=== PATIENT | male | born 1960 | race American Indian/Alaskan Native ===

== ENCOUNTER 2021-01-06 22:57 | Emergency (ER) | payer MEDICAID ==
[2021-01-07] MEDS ORDERED: ONDANSETRON 4 MG ODT TAB PO ONE (00:13)
--- NOTE | 2021-01-07 00:22 | Event Note ---
ED Screening Note Date of service: 01/07/21 Time: 00:19 ED Screening Note: c/o sudden onset of right flank pain and vomiting hx of kidney stones-stent placed 1 month ago per pt This initial assessment/diagnostic orders/clinical plan/treatment(s) is/are subject to change based on patients health status, clinical progression and re- assessment by fellow clinical providers in the ED. Further treatment and workup at subsequent clinical providers discretion. Patient/guardian urged not to elope from the ED as their condition may be serious if not clinically assessed and managed. Initial orders include: ct labs zofran
[2021-01-07 00:40] LABS: Basophils % (Auto) 0.2 % (0.0-1.8); Eosinophils # (Auto) 0.2 K/mm3 (0.0-0.4); Eosinophils % (Auto) 1.4 % (0.0-4.3); Hematocrit 48.7 % (35.5-45.6); Hemoglobin 15.6 gm/dl (11.8-15.2); Lymphocytes # (Auto) 1.6 K/mm3 (1.2-5.4); Lymphocytes % (Auto) 11.8 % (13.4-35.0); Mean Corpuscular HGB Conc 32 % (32-34); Mean Corpuscular Volume 91 fl (84-94); Monocytes # (Auto) 0.9 K/mm3 (0.0-0.8); Monocytes % (Auto) 6.3 % (0.0-7.3); Platelet Count 261 K/mm3 (140-440); Red Blood Count 5.33 M/mm3 (3.65-5.03); Red Cell Distribution Width 14.6 % (13.2-15.2)
[2021-01-07 01:03] LABS: Alanine Aminotransferase 34 units/L (7-56); Albumin 4.6 g/dL (3.9-5); BUN/Creatinine Ratio 21; Blood Urea Nitrogen 21 mg/dL (9-20); Calcium 9.6 mg/dL (8.4-10.2); Hemolysis Index 10
--- NOTE | 2021-01-07 02:01 | Cat Scan Report ---
CT ABDOMEN AND PELVIS WITHOUT CONTRAST INDICATION / CLINICAL INFORMATION: acute right flank pain. TECHNIQUE: Axial CT images were obtained through the abdomen and pelvis without IV contrast. All CT scans at this location are performed using CT dose reduction for ALARA by means of automated exposure control. COMPARISON: None available. FINDINGS: LOWER CHEST: No significant abnormality. LIVER: Large, fatty. GALLBLADDER: No significant abnormality. BILE DUCTS: No significant abnormality. PANCREAS: No significant abnormality. SPLEEN: No significant abnormality. ADRENALS: No significant abnormality. RIGHT KIDNEY / URETER: Moderate distention right renal collecting system and ureter to select the pre sence of a double-J stent. LEFT KIDNEY / URETER: No significant abnormality. STOMACH / SMALL BOWEL: No significant abnormality. COLON: Noninflamed colonic diverticulosis. APPENDIX: No significant abnormality. PERITONEUM: No free fluid. No free air. No fluid collection. LYMPH NODES: No significant adenopathy. VASCULAR STRUCTURES: No significant abnormality. URINARY BLADDER: No significant abnormality. REPRODUCTIVE ORGANS: No significant abnormality. ADDITIONAL FINDINGS: None. SKELETAL SYSTEM: No significant abnormality. IMPRESSION: Distention of the right renal collecting system with adjacent renal inflammation despite a double-J stent. Suspect stent occlusion. Signer Name: Noman Cuello MD Signed: 01/07/2021 1:56 AM Workstation Name: [id number]
[2021-01-07 02:39] LABS: Bacteria,Urine 1+ /HPF (Negative); Bilirubin,Urine NEG (Negative); Blood,Urine LG (Negative); Color,Urine Red (Yellow); Mucus,Urine 3+ /HPF; Urobilinogen,Urine < 2.0 mg/dL (<2.0)
[2021-01-07 02:48] LABS: RBC,Urine > 182.0 /HPF (0.0-6.0)
[2021-01-07] MEDS ORDERED: levoFLOXacin 500 MG TAB PO ONE (03:51)
[2021-01-07] MEDS ORDERED: fentaNYL 100 MCG/2 ML INJ IV ONE (03:51)
[2021-01-07] MEDS ORDERED: METOCLOPRAMIDE 10 MG/2 ML INJ IV ONE (03:52)
--- NOTE | 2021-01-07 03:57 | Emergency Department Report ---
HPI - General Chief Complaint: Abdominal Pain Time Seen by Provider: 01/07/21 00:13 - [facility] HPI: Room 2 The patient is a 60-year-old male present with a chief complaint of right flank pain. The patient states approximate 1 hour prior to arrival he developed pushing pain in his right flank associated with nausea no vomiting. Of note the patient states he had a ureteral stent placed at [facility] approximately 3 to 4 weeks ago. Patient states he cannot remember the name of his urologist. Patient denies dysuria or hematuria. Patient denies history of fever. Patient gives his pain a score of 9/10 ED Past Medical Hx - Past Medical History Previous Medical History?: Yes Hx Hypertension: Yes Hx Diabetes: Yes Additional medical history: Gout, High Cholesterol - Surgical History Past Surgical History?: Yes Additional Surgical History: Right Kidney Stent, Bilateral leg stents - Family History Family history: no significant - Social History Smoking Status: Former Smoker (None x8 years) Substance Use Type: None (Denies illicit drug use), Alcohol (Occasional) ED Review of Systems ROS: Stated complaint: KIDNEY PAIN Other details as noted in HPI Constitutional: denies: fever Eyes: denies: eye pain ENT: denies: throat pain Respiratory: no symptoms reported Cardiovascular: denies: chest pain Endocrine: no symptoms reported Gastrointestinal: abdominal pain, nausea. denies: vomiting Genitourinary: denies: dysuria, hematuria Musculoskeletal: back pain Neurological: denies: headache Physical Exam - Physical Exam Physical Exam: GENERAL: The patient is well-developed well-nourished male lying on stretcher not appearing to be in acute distress. [] HEENT: Normocephalic. Atraumatic. Extraocular motions are intact. Patient has moist mucous membranes. NECK: Supple. Trachea midline CHEST/LUNGS: Clear to auscultation. There is no respiratory distress noted. HEART/CARDIOVASCULAR: Regular. There is no tachycardia. There is no gallop rub or murmur. ABDOMEN: Abdomen is soft, nontender. Patient has normal bowel sounds. There is no abdominal distention. SKIN: There is no rash. There is no edema. There is no diaphoresis. NEURO: The patient is awake, alert, and oriented. The patient is cooperative. The patient has no focal neurologic deficits. The patient has normal speech MUSCULOSKELETAL: There is right CVA pain. There is no evidence of acute injury. ED Course - Consultations Consultation #1: 01/07/21 04:17 Case discussed with Eric Tian urologist Dr. Ange Haas transfer patient to the ED to be admitted by the hospitalist ED Medical Decision Making - Lab Data Result diagrams: 01/07/21 00:17 01/07/21 00:17 Laboratory Tests 01/07/21 01/07/21 01/07/21 00:17 00:17 Unknown WBC 13.6 H RBC 5.33 H Hgb 15.6 H Hct 48.7 H MCV 91 MCH 29 MCHC 32 RDW 14.6 Plt Count 261 Lymph % (Auto) 11.8 L [place] % (Auto) 6.3 Eos % (Auto) 1.4 Baso % (Auto) 0.2 Lymph # (Auto) 1.6 [place] # (Auto) 0.9 H Eos # (Auto) 0.2 Baso # (Auto) 0.0 Seg Neutrophils % 80.3 H Seg Neutrophils # 10.9 H Sodium 139 Potassium 4.5 Chloride 99.8 Carbon Dioxide 29 Anion Gap 15 BUN 21 H Creatinine 1.0 Estimated GFR > 60 BUN/Creatinine Ratio 21 Glucose 185 H Calcium 9.6 Total Bilirubin 0.30 AST 28 ALT 34 Alkaline Phosphatase 127 Total Protein 7.0 Albumin 4.6 Albumin/Globulin Ratio 1.9 Lipase 30 Urine Color Red Urine Turbidity Cloudy Urine pH 5.0 Ur Specific [place] 1.023 Urine Protein 100 mg/dl Urine Glucose (UA) 50 Urine Ketones Neg Urine Blood Lg Urine Nitrite Neg Urine Bilirubin Neg Urine Urobilinogen < 2.0 Ur Leukocyte Esterase Mod Urine WBC (Auto) 57.0 H Urine RBC (Auto) > 182.0 Urine Bacteria (Auto) 1+ Urine Mucus 3+ - Radiology Data Radiology results: report reviewed (CT abdomen pelvis), image reviewed (CT abdomen pelvis) [facility] [address] [place] [address] Cat Scan Report Signed Patient: CHARISSA MANZO MR#: [id number] : 1960 Acct:[id number] Age/Sex: 60 / M ADM Date: 01/06/21 Loc: ED Attending Dr: Ordering Physician: ANDREW GOODSON Date of Service: 01/07/21 Procedure(s): CT abdomen pelvis wo con Accession Number(s): [id number] cc: ANDREW GOODSON CT ABDOMEN AND PELVIS WITHOUT CONTRAST INDICATION / CLINICAL INFORMATION: acute right flank pain. TECHNIQUE: Axial CT images were obtained through the abdomen and pelvis without IV contrast. All CT scans at this location are performed using CT dose reduction for ALARA by means of automated exposure control. COMPARISON: None available. FINDINGS: LOWER CHEST: No significant abnormality. LIVER: Large, fatty. GALLBLADDER: No significant abnormality. BILE DUCTS: No significant abnormality. PANCREAS: No significant abnormality. SPLEEN: No significant abnormality. ADRENALS: No significant abnormality. RIGHT KIDNEY / URETER: Moderate distention right renal collecting system and ureter to select the presence of a double-J stent. LEFT KIDNEY / URETER: No significant abnormality. STOMACH / SMALL BOWEL: No significant abnormality. COLON: Noninflamed colonic diverticulosis. APPENDIX: No significant abnormality. PERITONEUM: No free fluid. No free air. No fluid collection. LYMPH NODES: No significant adenopathy. VASCULAR STRUCTURES: No significant abnormality. URINARY BLADDER: No significant abnormality. REPRODUCTIVE ORGANS: No significant abnormality. ADDITIONAL FINDINGS: None. SKELETAL SYSTEM: No significant abnormality. IMPRESSION: Distention of the right renal collecting system with adjacent renal inflammation despite a double-J stent. Suspect stent occlusion. Signer Name: Noman Cuello MD Signed: 01/07/2021 1:56 AM Workstation Name: [id number] Transcribed By: ES Dictated By: Noman Cuello MD Electronically Authenticated By: Noman Cuello MD Signed Date/Time: 01/07/21155 DD/ 1 TD/TT: Print Cancel - Differential Diagnosis Renal colic, pyelonephritis, Critical care attestation.: If time is entered above; I have spent that time in minutes in the direct care of this critically ill patient, excluding procedure time. ED Disposition Clinical Impression: Right flank pain, Pyelonephritis, Ureteral stent occlusion Disposition: DC/TX-70 ANOTHER TYPE HLTHCARE Is pt being admited?: No Does the pt Need Aspirin: No Condition: Fair Referrals: PRIMARY CARE, [Primary Care Provider] - 3-5 Days
[2021-01-07 08:56] VITALS: BP 205/116
== END 2021-01-07 08:00 | disposition other institution (70) ==
LOC: ED 22:57
DX: T83.192A Other mechanical complication of indwelling ureteral stent, initial encounter (principal); N12 Tubulo-interstitial nephritis, not specified as acute or chronic; R10.9 Unspecified abdominal pain; I10 Essential (primary) hypertension; E11.9 Type 2 diabetes mellitus without complications; Z98.890 Other specified postprocedural states; Z87.891 Personal history of nicotine dependence; Z88.0 Allergy status to penicillin; Z88.8 Allergy status to other drugs, medicaments and biological substances; Y92.89 Other specified places as the place of occurrence of the external cause
CPT/HCPCS: 36415; 74176; 80053; 81001; 83690; 85025; 87086; 96374; 96375; 99285; J2765; J3010; 87076; 87186; Q0162